=== PATIENT | male | born 1990 | race Two or more races ===

== ENCOUNTER 2021-01-05 06:31 | Observation (INO) ==
--- NOTE | 2021-01-05 09:08 | XRay Report ---
XR chest 1V portable CLINICAL HISTORY: Chest Pain COMPARISON STUDY: No previous studies for comparison. FINDINGS: Lung volumes are normal. There is an apparent irregular 3.1 cm irregular right suprahilar o pacity. There is no pneumothorax or pleural effusion. Cardiac size is normal. Mediastinal contours ar e normal. There is no evidence for pulmonary edema. IMPRESSION: Apparent 3.1 cm irregular right suprahilar opacity. This likely reflects normal vessels or airspace opacity. A pulmonary lesion is considered less likely. Follow-up PA and lateral chest rad iographs are recommended. ACT 112: Negative or not required by law. Electronically signed by: Jose Luis Goode M.D. 01/05/2021 9:07 AM
[2021-01-05 09:22] LABS: Basophils # (auto) 0.04 K/uL (0-0.2); Basophils % (auto) 0.8 %; Eosinophils # (auto) 0.07 K/uL (0-0.5); Eosinophils % (auto) 1.4 %; Hematocrit (blood only) 47.4 % (42-52); Hemoglobin 16.5 g/dL (14.0-18.0); Immature Granulocytes # (auto) 0.02 K/uL (0.00-0.02); Immature Granulocytes % (auto) 0.4 %; Lymphocytes # (auto) 1.73 K/uL (1.2-3.4); Lymphocytes % (auto) 35.7 %; Mean Corpuscular Hemoglobin 29.2 pg (25-34); Mean Corpuscular Hgb Conc 34.8 g/dL (32-36); Mean Corpuscular Volume 83.9 fL (80-100); Mean Platelet Volume 10.1 fL (7.4-10.4); Monocytes # (auto) 0.74 K/uL (0.11-0.59); Monocytes % (auto) 15.3 %; Neutrophils # (auto) 2.25 K/uL (1.4-6.5); Neutrophils % (auto) 46.4 %; Platelet Count 227 K/uL (130-400); RDW Coefficient of Variation 13.4 % (11.5-14.5); RDW Standard Deviation 40.6 fL (36.4-46.3); Red Blood Count 5.65 M/uL (4.7-6.1); White Blood Count 4.85 K/uL (4.8-10.8)
[2021-01-05 09:35] LABS: D Dimer 470 ug/L FEU (0-500); Partial Thromboplastin Ratio 1.1; Partial Thromboplastin Time 29.1 Seconds (21.0-31.0); Prothrombin Time 10.1 Seconds (9.0-12.0)
--- NOTE | 2021-01-05 10:05 | Emergency Department Note ---
History of Present Illness General Chief complaint: Illness Stated complaint: FATIGUE,HEADAHCE,CHEST DISCOMFORT,SWEATING Time Seen by Provider: 01/05/21 08:31 History of Present Illness Maximum Pain Intensity: 3 Patient is a 30-year-old male with past medical history significant for ADHD and hypertension who presents the emergency department for evaluation of fatigue, headache and chest pain and shortness of breath with exertion. The symptoms started about 2 to 3 days ago with a fatigue and headache. He did not really try anything for his symptoms. He had some slight chest discomfort and some shortness of breath with exertion that started yesterday and continued this morning. He states that the discomfort is dull, he would only rated about a 3/10. He noted sweats last night and this morning. He has not needed to take anything for his symptoms. He traveled internationally to [place] recently, he had a negative Covid test prior to travel on 12/24. He also did get the Covid vaccine. He was vaccinated for hepatitis A, dengue fever and yellow fever prior to travel. He does admit that he was not good about taking his lisinopril while he was traveling, and resumed this when he returned home. Home Medications Medication Instructions Recorded Confirmed Type B.breve-L.acid-L.rham-S. 2 tab PO QAM 01/05/21 01/05/21 History thermophilus 3 billion cell chewable tablet dextroamphetamine-amphetamine 10 10 mg PO QAM 01/05/21 01/05/21 History mg tablet (Adderall) ibuprofen 200 mg tablet 600 mg PO Q6H PRN 01/05/21 01/05/21 History lisinopril 10 mg tablet 10 mg PO QAM 01/05/21 01/05/21 History Allergies Allergy/AdvReac Type Severity Reaction Status Date / Time amoxicillin Allergy Unknown Hives Unverified 01/05/21 10:10 Past Med/Surg History Medical History (Updated 01/05/21 @ 14:51 by Ramy Salinas) ADD (attention deficit disorder) HTN (hypertension) Surgical History (Updated 01/05/21 @ 14:43 by Ramy Salinas) H/O wisdom tooth extraction History of tonsillectomy Social History Smoking Status: Never smoker marital status: Current Living Situation: Spouse 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 Feels Safe at Home: Yes Review of Systems A total of 10 systems reviewed and were otherwise negative Physical Exam Vital Signs Vital Signs - 24 hr 01/05/21 06:34 01/05/21 08:45 Temperature 36.0 C L Temperature Source Temporal Artery Scan Pulse Rate 97 H 98 H Pulse Rate from SpO2 Sensor 92 H Respiratory Rate 16 16 Respiratory Effort / Characteristics Non-Labored Spontaneous Respiratory Depth Normal Blood Pressure 134/92 114/77 Blood Pressure Mean 106 89 Blood Pressure Position Sitting Pulse Oximetry 97 96 Oxygen Delivery Method Room Air Sepsis Recent Fever Within 48 Hours No Sepsis New/Unexplained Change in Mental Status N/A Sepsis Action Taken by Nursing No Action Required CONSTITUTIONAL: Patient is a well-appearing 30-year-old male who is awake and alert and in no acute distress. Vital signs are stable. EYES: Pupils equal, round, reactive to light and accommodation. EOMs intact without nystagmus. Sclera are anicteric. ENT: Tympanic membranes intact, with normal landmarks. External canals are clear. Oral and nasopharynx are clear. Mucous membranes are moist, no lesions, tongue and gums appear normal. CARDIOVASCULAR: Regular rate and rhythm, with normal S1 and S2, no murmur or gallop or rub is heard. Peripheral pulses easily palpable. RESPIRATORY: Breath sounds equal and clear to auscultation without wheezes, ral es, or rhonchi heard. Full and equal chest expansion without accessory muscle use or retractions. INTEGUMENTARY: No lesions or rash, normal skin turgor. LYMPH: No lymphadenopathy. Course Course Patient was seen and assessed as above. Old records were reviewed. Critical x-rays were implemented prior to my assessment of the patient. EKG, chest x-ray, CBC with differential CMP coags, troponin, D-dimer and coag test we re obtained. Patient was assessed, available labs and x-ray and EKG were reviewed with him. Chemistries were still pending including troponin. Laboratory studies noted a normal white count of 4800. H&H 16.5 and 47.4. Platelet count is normal. His Covid swab was negative. When chemistries were resulted, electrolytes were noted to be within normal limits. BUN 15, creatinine 1.0. D-dimer was within normal limits, 470. Transaminases are normal. Troponin was elevated at 0.079. Patient was reviewed with attending physician, Dr. Price. Repeat EKG was obtained, with no change from prior. Sed rate was obtained and is normal. Lyme screen was obtained, with the IgM equivocally positive. Western blot and anaplasmosis testing are pending. Given the elevated troponin, consultation was placed with the [facility] for further care and work-up. Patient was reviewed with Dr. Irwin. Medical Decision Making Differential Diagnosis Differential diagnosis includes acute myocardial infarction, acute coronary syndrome, myocarditis, pericarditis, pericardial effusions /tamponade, esophagea l perforation, pulmonary embolism, pneumonia, pneumothorax, cardiomyopathy, congestive heart failure, anemia , COPD/asthma exacerbation, musculoskeletal, anxiety, costochondritis,. Medical Records Attestation: I reviewed the patient's medical records. Home Medications Current Medication List: was personally reviewed by me Laboratory Data Attestation: I reviewed the patient's lab results. Result diagrams: 01/05/21 09:00 01/05/21 09:00 Lab Results 01/05/21 01/05/21 01/05/21 Range/Units 09:00 09:00 09:00 WBC 4.85 (4.8-10.8) K/uL RBC 5.65 (4.7-6.1) M/uL Hgb 16.5 (14.0-18.0) g/dL Hct 47.4 (42-52) % MCV 83.9 (80-100) fL MCH 29.2 (25-34) pg MCHC 34.8 (32-36) g/dL RDW Std Deviation 40.6 (36.4-46.3) fL RDW Coeff of Enmanuel 13.4 (11.5-14.5) % Plt Count 227 (130-400) K/uL MPV 10.1 (7.4-10.4) fL Immature Gran % (Auto) 0.4 % Neut % (Auto) 46.4 % Lymph % (Auto) 35.7 % Cherry % (Auto) 15.3 % Eos % (Auto) 1.4 % Baso % (Auto) 0.8 % Neut # (Auto) 2.25 (1.4-6.5) K/uL Lymph # (Auto) 1.73 (1.2-3.4) K/uL Cherry # (Auto) 0.74 H (0.11-0.59) K/uL Eos # (Auto) 0.07 (0-0.5) K/uL Baso # (Auto) 0.04 (0-0.2) K/uL Immature Gran # (Auto) 0.02 (0.00-0.02) K/uL ESR (0-15) mm/hr PT 10.1 (9.0-12.0) Seconds INR 1.0 (0.9-1.1) APTT 29.1 (21.0-31.0) Seconds PTT Ratio 1.1 D-Dimer 470 (0-500) ug/L FEU Sodium 138 (136-145) mmol/L Potassium 4.5 (3.5-5.1) mmol/L Chloride 104 (98-107) mmol/L Carbon Dioxide 28 (21-32) mmol/L Anion Gap 6.0 (3-11) BUN 15 (7-18) mg/dl Creatinine 1.00 (0.6-1.4) mg/dl Est Cr Clr Drug Dosing 132.3 ml/min Est GFR ( Amer) 116.5 ml/min Est GFR (Non-Af Amer) 100.6 ml/min BUN/Creatinine Ratio 14.7 (10-20) Glucose 101 H (70-99) mg/dl Calcium 9.5 (8.5-10.1) mg/dl Total Bilirubin 1.3 H (0.2-1) mg/dl AST 38 H (15-37) U/L ALT 58 (12-78) U/L Alkaline Phosphatase 84 (45-117) U/L Troponin I 0.079 H* (0-0.045) ng/ml Total Protein 7.7 (6.4-8.2) gm/dl Albumin 4.0 (3.4-5.0) gm/dl Globulin 3.7 (2.5-4.0) gm/dl Albumin/Globulin Ratio 1.1 (0.9-2) Specimen Hemolysis Lyme Disease IgG Ab (Negative) Lyme Disease IgM Ab (Negative) COVID-19 Eval Order SARS-CoV-2, RNA, NAAT (NEGATIVE) 01/05/21 01/05/21 01/05/21 Range/Units 09:00 09:00 09:00 WBC (4.8-10.8) K/uL RBC (4.7-6.1) M/uL Hgb (14.0-18.0) g/dL Hct (42-52) % MCV (80-100) fL MCH (25-34) pg MCHC (32-36) g/dL RDW Std Deviation (36.4-46.3) fL RDW Coeff of Enmanuel (11.5-14.5) % Plt Count (130-400) K/uL MPV (7.4-10.4) fL Immature Gran % (Auto) % Neut % (Auto) % Lymph % (Auto) % Cherry % (Auto) % Eos % (Auto) % Baso % (Auto) % Neut # (Auto) (1.4-6.5) K/uL Lymph # (Auto) (1.2-3.4) K/uL Cherry # (Auto) (0.11-0.59) K/uL Eos # (Auto) (0-0.5) K/uL Baso # (Auto) (0-0.2) K/uL Immature Gran # (Auto) (0.00-0.02) K/uL ESR 17 H (0-15) mm/hr PT (9.0-12.0) Seconds INR (0.9-1.1) APTT (21.0-31.0) Seconds PTT Ratio D-Dimer (0-500) ug/L FEU Sodium (136-145) mmol/L Potassium (3.5-5.1) mmol/L Chloride (98-107) mmol/L Carbon Dioxide (21-32) mmol/L Anion Gap (3-11) BUN (7-18) mg/dl Creatinine (0.6-1.4) mg/dl Est Cr Clr Drug Dosing ml/min Est GFR ( Amer) ml/min Est GFR (Non-Af Amer) ml/min BUN/Creatinine Ratio (10-20) Glucose (70-99) mg/dl Calcium (8.5-10.1) mg/dl Total Bilirubin (0.2-1) mg/dl AST (15-37) U/L ALT (12-78) U/L Alkaline Phosphatase (45-117) U/L Troponin I (0-0.045) ng/ml Total Protein (6.4-8.2) gm/dl Albumin (3.4-5.0) gm/dl Globulin (2.5-4.0) gm/dl Albumin/Globulin Ratio (0.9-2) Specimen Hemolysis Lyme Disease IgG Ab (Negative) Lyme Disease IgM Ab (Negative) COVID-19 Eval [facility] SARS-CoV-2, RNA, NAAT NEGATIVE (NEGATIVE) 01/05/21 Range/Units 09:00 WBC (4.8-10.8) K/uL RBC (4.7-6.1) M/uL Hgb (14.0-18.0) g/dL Hct (42-52) % MCV (80-100) fL MCH (25-34) pg MCHC (32-36) g/dL RDW Std Deviation (36.4-46.3) fL RDW Coeff of Enmanuel (11.5-14.5) % Plt Count (130-400) K/uL MPV (7.4-10.4) fL Immature Gran % (Auto) % Neut % (Auto) % Lymph % (Auto) % Cherry % (Auto) % Eos % (Auto) % Baso % (Auto) % Neut # (Auto) (1.4-6.5) K/uL Lymph # (Auto) (1.2-3.4) K/uL Cherry # (Auto) (0.11-0.59) K/uL Eos # (Auto) (0-0.5) K/uL Baso # (Auto) (0-0.2) K/uL Immature Gran # (Auto) (0.00-0.02) K/uL ESR (0-15) mm/hr PT (9.0-12.0) Seconds INR (0.9-1.1) APTT (21.0-31.0) Seconds PTT Ratio D-Dimer (0-500) ug/L FEU Sodium (136-145) mmol/L Potassium (3.5-5.1) mmol/L Chloride (98-107) mmol/L Carbon Dioxide (21-32) mmol/L Anion Gap (3-11) BUN (7-18) mg/dl Creatinine (0.6-1.4) mg/dl Est Cr Clr Drug Dosing ml/min Est GFR ( Amer) ml/min Est GFR (Non-Af Amer) ml/min BUN/Creatinine Ratio (10-20) Glucose (70-99) mg/dl Calcium (8.5-10.1) mg/dl Total Bilirubin (0.2-1) mg/dl AST (15-37) U/L ALT (12-78) U/L Alkaline Phosphatase (45-117) U/L Troponin I (0-0.045) ng/ml Total Protein (6.4-8.2) gm/dl Albumin (3.4-5.0) gm/dl Globulin (2.5-4.0) gm/dl Albumin/Globulin Ratio (0.9-2) Specimen Hemolysis Lyme Disease IgG Ab Negative (Negative) Lyme Disease IgM Ab Equivocal A (Negative) COVID-19 Eval Order SARS-CoV-2, RNA, NAAT (NEGATIVE) Imaging Data Attestation: I personally reviewed and interpreted this imaging study as follo ws: Radiologist's Impression: Chest X-Ray 01/05/21 08:00 XR chest 1V portable CLINICAL HISTORY: Chest Pain COMPARISON STUDY: No previous studies for comparison. FINDINGS: Lung volumes are normal. There is an apparent irregular 3.1 cm irregular right suprahilar opacity. There is no pneumothorax or pleural effusion. Cardiac size is normal. Mediastinal contours are normal. There is no evidence for pulmonary edema. IMPRESSION: Apparent 3.1 cm irregular right suprahilar opacity. This likely reflects normal vessels or airspace opacity. A pulmonary lesion is considered less likely. Follow-up PA and lateral chest radiographs are recommended. ACT 112: Negative or not required by law. Electronically signed by: Jose Luis Goode M.D. 01/05/2021 9:07 AM ECG Data Attestation: I personally reviewed and interpreted this ECG as follows: (EKG #1 at 0850) Indication: + chest pain and + SOB/dyspnea Rate (beats per minute): 84 Rhythm: + normal sinus ECG [place]: + Normal ECG ST segments: + Normal ST segments Comparison ECG Date: no prior available Additional Comments: EKG #2 at 1053 remains unchanged, normal sinus rhythm, rate now 75 bpm. No acute ischemic changes noted. MDM Narrative See ED course. Impression & Plan Precordial chest pain, WALLER (dyspnea on exertion), Elevated troponin Discharge Plan Visit Data Chief Complaint: Illness Stated Complaint: FATIGUE,HEADAHCE,CHEST DISCOMFORT,SWEATING ED Midlevel Provider: Ramy Salinas Discharge Problem: Precordial chest pain, WALLER (dyspnea on exertion), Elevated troponin Patient Disposition: Admitted As Inpatient
[2021-01-05 10:15] LABS: Albumin Globulin Ratio 1.1 (0.9-2); BUN Creatinine Ratio 14.7 (10-20); Bilirubin,Total 1.3 mg/dl (0.2-1); Calcium 9.5 mg/dl (8.5-10.1); Creatinine Clr Calc Pharmacy 132.3 ml/min; Est GFR (African American) 116.5 ml/min; Est GFR (Non-African American) 100.6 ml/min; Globulin 3.7 gm/dl (2.5-4.0); Potassium 4.5 mmol/L (3.5-5.1); Total Protein 7.7 gm/dl (6.4-8.2); Troponin I 0.079 ng/ml (0-0.045)
[2021-01-05 11:50] LABS: Lyme Ab IgG w/WB Rflx Negative (Negative)
[2021-01-05 12:00] LABS: Lyme Ab IgM w/WB Rflx Equivocal (Negative)
--- NOTE | 2021-01-05 12:05 | History & Physical Report ---
Date of Service January 05, 2021 Assessment & Plan (1) Chest pain: Plan: 30 y/o M Hx HTN, ADD. The pt presents with central CP which has occurred intermittently over the past 2 days, accompanied by diaphoresis. He denies SOB, nausea, vomiting, lightheadedness. The pain did worsen with exertion such as climbing stairs, and was relieved with rest. He reports that he had been to [facility] [place] form early to december. He did not have any illnesses while travelling, however, 4 days ago he developed a headache and fatigue which lasted for 2 days preceding the chest pain. Initial labs are notable for a trop of .08 and slightly elevated ESR and AST. EKG does not support acute ischemia. 1) CP/elevated trop - differential would include ischemia, pericarditis/myocarditis, GI-related. We will obtain serial trops and an echo to start. He was provided with ASA. As an ulcer is in the differential, we will hold anticoagulation pending a repeat trop and echo result. Cardiology are consulted. 2) HTN - normotensive on admission. We will hold Lisinopril pending echo result as we may sub a beta lalito 3) ADD - Adderall held as it may vasoconstrict 4) LFT elevations - minimal - will trend AM - ER had sent Lyme and anaplasma titers Full code - ambulatory Total time for this admit including review of labs, meds, imaging, records - discussion with pt and ER attending - 41 min (2) HTN (hypertension): (3) ADD (attention deficit disorder): (4) Troponin I above reference range: History of Present Illness Chief Complaint: Chest pain Primary Care Provider: Joana Mccain 30 y/o M Hx HTN, ADD. The pt presents with central CP which has occurred intermittently over the past 2 days, accompanied by diaphoresis. He denies SOB, nausea, vomiting, lightheadedness. The pain did worsen with exertion such as climbing stairs, and was relieved with rest. He reports that he had been to [facility] and [place] form early to december. He did not have any illnesses while travelling, however, 4 days ago he developed a headache and fatigue which lasted for 2 days preceding the chest pain. Initial labs are notable for a trop of .08 and slightly elevated ESR and AST. EKG does not support acute ischemia. PMH: 1) HTN 2) ADD Surgical: Tonsillectomy Social: Does not smoke, occasional ETOH. No drug use. 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 Family: Both parents alive and well Allergies Allergy/AdvReac Type Severity Reaction Status Date / Time amoxicillin Allergy Unknown Hives Unverified 01/05/21 10:10 Home Medications Medication Instructions Recorded Confirmed Type B.breve-L.acid-L.rham-S. 2 tab PO QAM 01/05/21 01/05/21 History thermophilus 3 billion cell chewable tablet dextroamphetamine-amphetamine 10 10 mg PO QAM 01/05/21 01/05/21 History mg tablet (Adderall) ibuprofen 200 mg tablet 600 mg PO Q6H PRN 01/05/21 01/05/21 History lisinopril 10 mg tablet 10 mg PO QAM 01/05/21 01/05/21 History Past Med/Surg History Social History Smoking Status: Never smoker Feels Safe at Home: Yes Review of Systems Review of Systems: Gen: Denies fevers, night sweats, rigors, fatigue, malaise, weight loss/gain. + diaphoresis. ENT: Denies congestion, throat pain, hearing loss Eyes: Denies acute visual changes CV: +CP as above Pulmonary: Denies SOB, cough, wheezing GI: Denies N/V, diarrhea, constipation Neuro: Denies acute or unilateral weakness, acute gait impairment, headache or acute visual changes Musculoskeletal: Denies joint pain, inflammation Endocrine: Denies polydipsia, polyuria Skin: Denies acute rashes or ulcers Physical Exam Physical Exam: General: AAO x 3, no distress ENT: No erythema or exudates, no thrush Eyes: PILY, EOMI Head and neck: Normocephalic, atraumatic, No JVD, neck is supple. Chest/heart: Nontender, S1,2, RRR, no murmurs, no gallops Lungs: CTAB, no wheezing or crackles Abdomen: Nontender, nondistended, BS+ Neuro: AAO x 3, speech is clear, no unilateral weakness or loss of sensation, coordination intact Musculoskeletal: No joint inflammation, muscle tenderness, FROM Skin: No acute rashes or ulcers Extremities: No clubbing, cyanosis, edema Results & Data Results & Data ([facility]) Vital Signs (Past 12 Hours) Vital Signs Temp Pulse Resp BP Pulse Ox 01/05/21 08:45 98 H 16 114/77 96 01/05/21 06:34 96.8 F L 97 H 16 134/92 97 Laboratory Results Trop: 0.08 Diagnostic Findings EKG: NSR CXR: clear Code Status & VTE Plan Code Status Full VTE Prophylaxis Plan VTE Prophylaxis will be ordered: No PG Care Time/CCT Total # of Minutes Spent Total Time Spent with Patient: Total time spent is greater than 50% in coordination of care (as documented) at patient's floor/unit and/or counseling patient: Coding Level of Care Code 78683 Initial Inpt Care Lvl 3 Diagnoses Chest pain R07.9 HTN (hypertension) I10 ADD (attention deficit disorder) F98.8 Troponin I above reference range R77.8
[2021-01-05] MEDS ORDERED: MoRPHine SULFATE 2 MG/ML CARP IV PRN (14:57)
[2021-01-05] MEDS ORDERED: ZOLPIDEM TARTRATE 5 MG TAB PO PRN (14:57)
[2021-01-05] MEDS ORDERED: ACETAMINOPHEN 325 MG TAB PO PRN (14:57)
[2021-01-05 15:46] LABS: Troponin I 0.062 ng/ml (0-0.045)
--- NOTE | 2021-01-05 16:33 | XCELERA ---
[id number]
[2021-01-06 06:11] LABS: Hematocrit (blood only) 48.8 % (42-52); Hemoglobin 16.6 g/dL (14.0-18.0); Mean Corpuscular Hemoglobin 28.6 pg (25-34); Mean Platelet Volume 10.1 fL (7.4-10.4); Platelet Count 252 K/uL (130-400); RDW Coefficient of Variation 13.4 % (11.5-14.5); RDW Standard Deviation 40.9 fL (36.4-46.3); Red Blood Count 5.81 M/uL (4.7-6.1); White Blood Count 6.02 K/uL (4.8-10.8)
[2021-01-06 06:39] LABS: BUN Creatinine Ratio 14.3 (10-20); Calcium 9.5 mg/dl (8.5-10.1); Est GFR (African American) 119.4 ml/min; Magnesium 2.5 mg/dl (1.8-2.4); Potassium 4.4 mmol/L (3.5-5.1)
[2021-01-06 06:42] LABS: ALC (manual) 2.34 K/uL (1.2-3.4); ANC (manual) 3.17 K/uL (1.4-6.5); Eosinophils # (manual) 0.16 K/uL (0-0.5); Eosinophils % (manual) 2.6 %; Lymphocytes # (manual) 1.35 K/uL (1.2-3.4); Lymphocytes % (manual) 22.4 %; Monocytes # (manual) 0.36 K/uL (0.11-0.59); Neutrophils # (manual) 3.17 K/uL (1.4-6.5); Neutrophils % (manual) 52.6 %; Reactive Lymphocytes # (manual) 0.99 K/uL; Reactive Lymphocytes % (manual) 16.4 %
[2021-01-06] MEDS: ASPIRIN 81 MG ECTAB PO SCH (08:50)
[2021-01-06 14:46] LABS: 18KDIGG Band NON-REACTIVE; 23KDIGG Band NON-REACTIVE; 23KDIGM Band NON-REACTIVE; 28KDIGG Band NON-REACTIVE; 30KDIGG Band NON-REACTIVE; 39KDIGG Band NON-REACTIVE; 39KDIGM Band NON-REACTIVE; 41KDIGG Band NON-REACTIVE; 41KDIGM Band NON-REACTIVE; 45KDIGG Band NON-REACTIVE; 58KDIGG Band NON-REACTIVE; 66KDIGG Band NON-REACTIVE; 93KDIGG Band NON-REACTIVE; Lyme Antibodies, WB IgG NEGATIVE (NEGATIVE); Lyme Antibodies, WB IgM NEGATIVE (NEGATIVE)
--- NOTE | 2021-01-06 18:25 | Cardiology Consultation ---
Date of Consultation January 06, 2021 Assessment & Plan (1) Elevated troponin: 1. Elevated troponin: Suspect myocarditis. I would observe until levels fall. History of Present Illness Attending Physician: Rolf Luu Allergies Allergy/AdvReac Type Severity Reaction Status Date / Time amoxicillin Allergy Unknown Hives Unverified 01/05/21 10:10 Home Medications Medication Instructions Recorded Confirmed Type B.breve-L.acid-L.rham-S. 2 tab PO QAM 01/05/21 01/05/21 History thermophilus 3 billion cell chewable tablet dextroamphetamine-amphetamine 10 10 mg PO QAM 01/05/21 01/05/21 History mg tablet (Adderall) ibuprofen 200 mg tablet 600 mg PO Q6H PRN 01/05/21 01/05/21 History lisinopril 10 mg tablet 10 mg PO QAM 01/05/21 01/05/21 History Patient History Medical History (Updated 01/05/21 @ 14:51 by Ramy Salinas) ADD (attention deficit disorder) HTN (hypertension) Surgical History (Updated 01/05/21 @ 14:43 by Ramy Salinas) H/O wisdom tooth extraction History of tonsillectomy Social History Smoking Status: Never smoker Hx Alcohol Use: Yes Alcohol type: beer Hx Substance Use: No Preferred Language: Telugu Communication Ability: Effective Hog Grader Required: No Beliefs That Will Affect Care: None marital status: Current Living Situation: Spouse 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 Feels Safe at Home: Yes Assistive Devices: None Results & Data ([facility] [place]) Vital Signs (Past 12 Hours) Vital Signs Temp Pulse Pulse Resp BP Pulse Ox 01/06/21 15:23 71 01/06/21 15:09 36.7 C 68 19 124/80 97 01/06/21 10:41 36.4 C L 74 20 131/81 96 01/06/21 09:04 36.4 C L 82 18 127/81 99 01/06/21 09:03 75 01/06/21 07:45 36.8 C 53 L 19 132/86 96 PG Care Time/CCT Total # of Minutes Spent Total Time Spent with Patient: Total time spent is greater than 50% in coordination of care (as documented) at patient's floor/unit and/or counseling patient: Coding Diagnoses Elevated troponin R77.8
--- NOTE | 2021-01-06 22:07 | Hospitalist Progress Note ---
Date of Service January 06, 2021 Assessment & Plan (1) Myocarditis: Plan: Patient has elevated troponin. Dif diagnosis is myocarditis, possible demand ischemia. Family is concerned over chagas, hojanae, eventhough he traveled to an area where it is possible to get this. He was in hotels and research areas. Also he had negative eosinophilia. will consider [facility] in AM to test for viruses, however doubt this will change of address clerk. But patient and his would like to find out possible cause of his symptoms. Given elebated troponin, will hold off stress test. Pulmonary emboli seems less likely due to no signs of DVT clinically, no signs of hypoxia, no tachycardia, and negative d dimer. Wells criteria for P/E is low. (2) Chest pain: Plan: 30 y/o M Hx HTN, ADD. The pt presents with central CP which has occurred intermittently over the past 2 days, accompanied by diaphoresis. He denies SOB, nausea, vomiting, lightheadedness. The pain did worsen with exertion such as climbing stairs, and was relieved with rest. He reports that he had been to [place] and [place] form early to mid December. He did not have any illnesses while travelling, however, 4 days ago he developed a headache and fatigue which lasted for 2 days preceding the chest pain. Initial labs are notable for a trop of .08 and slightly elevated ESR and AST. EKG does not support acute ischemia. 1) CP/elevated trop - differential would include ischemia, pericarditis/myocarditis, GI-related. We will obtain serial trops and an echo to start. He was provided with ASA. As an ulcer is in the differential, we will hold anticoagulation pending a repeat trop and echo result. Cardiology are consulted. 2) HTN - normotensive on admission. We will hold Lisinopril pending echo result as we may sub a beta lalito 3) ADD - Adderall held as it may vasoconstrict 4) LFT elevations - minimal - will trend AM - ER had sent Lyme and anaplasma titers Full code - ambulatory Total time for this admit including review of labs, meds, imaging, records - discussion with pt and ER attending - 41 min (3) HTN (hypertension): (4) ADD (attention deficit disorder): (5) Troponin I above reference range: Admission and Anticipated Discharge Date Admission Date: January 05, 2021 Subjective Patient reports feeling better. He has no new complaints. Updated his on the phone. Review of Systems Review of Systems: All systems reviewed & are unremarkable except as noted in HPI & below Physical Exam Physical Exam: General: AAO x 3, no distress ENT: No erythema or exudates, no thrush Eyes: PILY, EOMI Head and neck: Normocephalic, atraumatic, No JVD, neck is supple. Chest/heart: Nontender, S1,2, RRR, no murmurs, no gallops Lungs: CTAB, no wheezing or crackles Abdomen: Nontender, nondistended, BS+ Neuro: AAO x 3, speech is clear Musculoskeletal: No joint inflammation, muscle tenderness, FROM Skin: No acute rashes or ulcers Extremities: No clubbing, cyanosis, edema Results & Data Results & Data ([facility]) Vital Signs (Past 12 Hours) Vital Signs Temp Pulse Pulse Resp BP Pulse Ox 01/06/21 20:07 36.6 C 90 18 126/79 94 01/06/21 15:23 71 01/06/21 15:09 36.7 C 68 19 124/80 97 01/06/21 10:41 36.4 C L 74 20 131/81 96 PG Care Time/CCT Total # of Minutes Spent Total Time Spent with Patient: Total time spent is greater than 50% in coordination of care (as documented) at patient's floor/unit and/or counseling patient: Coding Level of Care Code 40451 Subseq Obs Care Lvl 3 Diagnoses Chest pain R07.9 HTN (hypertension) I10 ADD (attention deficit disorder) F98.8 Troponin I above reference range R77.8 Myocarditis I51.4 Time Spent (min) 40
[2021-01-07] MEDS: ASPIRIN 81 MG ECTAB PO SCH (08:23)
--- NOTE | 2021-01-07 09:51 | XRay Report ---
XR chest 2V PA/lateral HISTORY: 30 years-old Male opacity noted on x ray follow up study in a patient with a right suprahil ar opacity COMPARISON: Chest radiograph 01/05/2021 TECHNIQUE: PA and lateral views of the chest FINDINGS: Cardiomediastinal and hilar silhouettes are within normal limits. The previously questioned right sup rahilar opacity is not identified. No pneumothorax, pleural effusion, airspace consolidation or overt pulmonary edema. Bones of the chest appear normal. IMPRESSION: No acute process. The previously questioned right suprahilar opacity is not identified on today's study and likely correlated with normal pulmonary vasculature. ACT 112: Negative or not required by law. The above report was generated using voice recognition software. It may contain grammatical, syntax o r spelling errors. Electronically signed by: Nimesh Briceno M.D. 01/07/2021 9:50 AM
[2021-01-07 10:34] LABS: C-Reactive Protein High Sens. >10.0 mg/L
--- NOTE | 2021-01-07 12:49 | XCELERA ---
[id number]
--- NOTE | 2021-01-07 13:45 | Discharge Summary ---
Date of Service January 07, 2021 Admission HPI Per Admitting Provider 30 y/o M Hx HTN, ADD. The pt presents with central CP which has occurred intermittently over the past 2 days, accompanied by diaphoresis. He denies SOB, nausea, vomiting, lightheadedness. The pain did worsen with exertion such as climbing stairs, and was relieved with rest. He reports that he had been to [place] and [place] form early to mid December. He did not have any illnesses while travelling, however, 4 days ago he developed a headache and fatigue which lasted for 2 days preceding the chest pain. Initial labs are notable for a trop of .08 and slightly elevated ESR and AST. EKG does not support acute ischemia. PMH: 1) HTN 2) ADD Surgical: Tonsillectomy Social: Does not smoke, occasional ETOH. No drug use. 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 Family: Both parents alive and well Principal Diagnosis myocarditis Discharge Exam Constitutional WD/WN, vitals as above Eyes PERRL, conjunctivae normal, anicteric sclerae ENMT external ear and nose normal, oropharynx normal Respiratory normal respiratory effort Cardiovascular RRR, no murmur, no edema Gastrointestinal (Abdomen) Inspection/Auscultation: abdomen normal to inspection Musculoskeletal Head/Neck/Chest: normocephalic and head atraumatic Discharge Data Allergies Allergy/AdvReac Type Severity Reaction Status Date / Time amoxicillin Allergy Unknown Hives Unverified 01/05/21 10:10 Consultations 01/05/21 11:21 ED Decision to Admit Stat 01/05/21 14:57 Consult Cardiology Routine Hospital Course (1) Myocarditis: Patient has elevated troponin. Dif diagnosis is myocarditis, possible demand ischemia. Family is concerned over chagas, hoever, eventhough he traveled to an area where it is possible to get this. He was in hotels and research areas. Also he had negative eosinophilia. Ordered biofire in AM to test for viruses, however doubt this will manager of change. As troponin normalized and EKG was normal, it was deemed safe to perform a stress echo. Exercise stress echo was normal. Pulmonary emboli seems less likely due to no signs of DVT clinically, no signs of hypoxia, no tachycardia, and negative d dimer. Wells criteria for P/E is low. Mild case of Left ventricular hypertrophy(noted on echocardiogram): perhaps from Adderall use or uncontrolled hypertension in the past. Will recommend Followup with PCP to monitor your blood pressure to see if additional medication is required. This may be a case of myocarditis. Will recommend followup with Dr. Allen in 4 weeks. Updated patient and who agree with plan. (2) Chest pain: Admission orders noted below: 30 y/o M Hx HTN, ADD. The pt presents with central CP which has occurred intermittently over the past 2 days, accompanied by diaphoresis. He denies SOB, nausea, vomiting, lightheadedness. The pain did worsen with exertion such as climbing stairs, and was relieved with rest. He reports that he had been to [place] and [place] form early to mid December. He did not have any illnesses while travelling, however, 4 days ago he developed a headache and fatigue which lasted for 2 days preceding the chest pain. Initial labs are notable for a trop of .08 and slightly elevated ESR and AST. EKG does not support acute ischemia. 1) CP/elevated trop - differential would include ischemia, jeremiah carditis/myocarditis, GI-related. We will obtain serial trops and an echo to start. He was provided with ASA. As an ulcer is in the differential, we will hold anticoagulation pending a repeat trop and echo result. Cardiology are consulted. 2) HTN - normotensive on admission. We will hold Lisinopril pending echo result as we may sub a beta lalito 3) ADD - Adderall held as it may vasoconstrict 4) LFT elevations - minimal - will trend AM - ER had sent Lyme and anaplasma titers (3) HTN (hypertension): (4) ADD (attention deficit disorder): (5) Troponin I above reference range: Total Time Total Time Spent Total Time Spent (In Minutes): 32 Discharge Plan Discharge Items Patient Disposition: Home - Self-Care Reason For Visit: CP, ELEVATED TROP Discharge Diagnosis: Chest pain, elevated trop Activity: Resume your previous activity Non-emergency contact: Primary Care Provider Call non-emergency contact if: you have any medication questions Follow-up/Referrals: Seb Allen MD [Physician] - Joana Mccain [Primary Care Provider] - Diet: Regular Addtl Attending Provider Instructions: You were seen for SOB on exertion. You had a mild elevated troponin, thankfully your echocardiogram was good. And your troponin normalized. You did have a mild case of Left ventricular hypertrophy(noted on echocardiogram). This usually occurs when you have increased afterload, perhaps from Adderall use or uncontrolled hypertension in the past. However your Blood pressure was normal while you were in the hospital. Will recommend Followup with PCP to monitor your blood pressure to see if additional medication is required. Understand there was concern over Pulmonary embolism. This is unlikely given normal oxygen level, normal heart rate, no history of lower extremity DVT clinically and normal D-DIMER. You had a negative stress test. Ordered antibody tests for CHAGAS. Ordered a biofire to test for viruses. This may be a case of myocarditis. Will recommend followup with Dr. Allen in 4 weeks. If your symptoms return prior, will need to see Dr. Allen soon. For now you can live your life without restrictions. Pending Studies at Discharge: No Stand-Alone Forms: My [facility], Smoking Cessation Medications and DC Order Prescriptions: Continued dextroamphetamine-amphetamine [Adderall] 10 mg Tablet 10 mg PO QAM RF: 0 lisinopril 10 mg Tablet 10 mg PO QAM RF: 0 ibuprofen 200 mg Tablet 600 mg PO Q6H PRN (Reason: fever/pain) RF: 0 B.breve-L.acid-L.rham-S.thermo 3 billion cell Tablet,Chewable 2 tab PO QAM RF: 0 Discharge Orders: Discharge Order (Routine); Ordered 01/07/21 Ordered By: Rolf Luu Admission Data Admit Date/Time: 01/05/21 11:42 Attending Provider: Rolf Luu Admit Provider: Van Irwin Primary Care Provider: Joana Mccain Other Providers: Van Irwin ; Seb Allen Coding Level of Care Code D/C DAY MANAGEMENT >30 MINS Diagnoses Myocarditis I51.4 Chest pain R07.9 HTN (hypertension) I10 ADD (attention deficit disorder) F98.8 Troponin I above reference range R77.8
[2021-01-07 14:34] LABS: Adenovirus PCR Not Detected (NotDetected); Bordetella parapertussis PCR Not Detected (NotDetected); Bordetella pertussis PCR Not Detected (NotDetected); Chlamydia pneumoniae PCR Not Detected (NotDetected); Coronavirus 229E PCR Not Detected (NotDetected); Coronavirus CoV-2 (COVID19)PCR Not Detected (NotDetected); Coronavirus HKU1 PCR Not Detected (NotDetected); Coronavirus NL63 PCR Not Detected (NotDetected); Coronavirus OC43PCR Not Detected (NotDetected); Human Metapneumovirus PCR Not Detected (NotDetected); Influenza A PCR Not Detected (NotDetected); Influenza B PCR Not Detected (NotDetected); Mycoplasma pneumoniae PCR Not Detected (NotDetected); Parainfluenza Virus 1 PCR Not Detected (NotDetected); Parainfluenza Virus 2 PCR Not Detected (NotDetected); Parainfluenza Virus 3 PCR Not Detected (NotDetected); Parainfluenza Virus 4 PCR Not Detected (NotDetected); Respiratory Syncytial VirusPCR Not Detected (NotDetected); Rhinovirus/Enterovirus PCR Not Detected (NotDetected)
--- NOTE | 2021-01-07 16:44 | Electrocardiogram Report ---
Test Reason : Blood Pressure : / mmHG Vent. Rate : 084 BPM Atrial Rate : 084 BPM P-R Int : 148 ms QRS Dur : 094 ms QT Int : 356 ms P-R-T Axes : 038 046 024 degrees QTc Int : 420 ms Poor data quality, interpretation may be adversely affected Normal sinus rhythm Normal ECG No previous ECGs available Confirmed by Seb Allen ([id number]) on 01/07/2021 4:43:49 PM Referred By: REFERRED SELF Confirmed By:Seb Allen
--- NOTE | 2021-01-07 16:45 | Electrocardiogram Report ---
Test Reason : Blood Pressure : / mmHG Vent. Rate : 077 BPM Atrial Rate : 077 BPM P-R Int : 154 ms QRS Dur : 094 ms QT Int : 374 ms P-R-T Axes : 044 045 019 degrees QTc Int : 423 ms Normal sinus rhythm Normal ECG When compared with ECG of 05-JAN-2021 08:50, (unconfirmed) No significant change was found Confirmed by Seb Allen ([id number]) on 01/07/2021 4:45:13 PM Referred By: REFERRED SELF Confirmed By:Seb Allen
--- NOTE | 2021-01-07 16:59 | Electrocardiogram Report ---
Test Reason : Blood Pressure : / mmHG Vent. Rate : 063 BPM Atrial Rate : 063 BPM P-R Int : 168 ms QRS Dur : 090 ms QT Int : 404 ms P-R-T Axes : 025 045 022 degrees QTc Int : 413 ms Normal sinus rhythm Normal ECG When compared with ECG of 05-JAN-2021 10:54, (unconfirmed) No significant change was found Confirmed by Seb Allen ([id number]) on 01/07/2021 4:59:01 PM Referred By: REFERRED SELF Confirmed By:Seb Allen
--- NOTE | 2021-01-08 07:26 | Electrocardiogram Report ---
Test Reason : Blood Pressure : / mmHG Vent. Rate : 086 BPM Atrial Rate : 086 BPM P-R Int : 156 ms QRS Dur : 090 ms QT Int : 368 ms P-R-T Axes : 047 044 041 degrees QTc Int : 440 ms Normal sinus rhythm Normal ECG When compared with ECG of 05-JAN-2021 21:46, (unconfirmed) T wave amplitude has decreased in Lateral leads Confirmed by Seb Allen ([id number]) on 01/08/2021 7:26:16 AM Referred By: REFERRED SELF Confirmed By:Seb Allen
== END 2021-01-07 14:15 | disposition home or self-care (01) ==
LOC: EDINP 06:31 → ED 06:31 → SUATTDRO 11:42 → 2S 14:52
DX: Z88.1 Allergy status to other antibiotic agents; R07.9 Chest pain, unspecified; Z79.899 Other long term (current) drug therapy; F98.8 Other specified behavioral and emotional disorders with onset usually occurring in childhood and adolescence; R79.89 Other specified abnormal findings of blood chemistry; I11.9 Hypertensive heart disease without heart failure